=== PATIENT | female | born 1965 ===

== ENCOUNTER 2020-06-26 11:00 | Outpatient (CLI) | payer OTHER, SELFPAY | END 2020-06-26 11:01 | disposition home or self-care (01) | LOC: ANHCOVIDVC 11:00 | DX: Z23 Encounter for immunization (principal) | CPT/HCPCS: 0001A; 91300 ==

== ENCOUNTER 2020-07-17 10:56 | Outpatient (CLI) | payer OTHER, SELFPAY | END 2020-07-17 10:57 | disposition home or self-care (01) | LOC: ANHCOVIDVC 10:57 | DX: Z23 Encounter for immunization (principal) | CPT/HCPCS: 0002A; 91300 ==